=== PATIENT | male | born 1995 | race Caucasian/White ===

== ENCOUNTER 2020-05-18 21:09 | Emergency (ER) | payer OTHER ==
[~2020-05-18] VITALS: Ht 172.7 cm; Wt 113.4 kg
[2020-05-18 21:37] VITALS: BP 144/85
[2020-05-18] MEDS ORDERED: MOTRIN PO STA (21:39)
--- NOTE | 2020-05-18 21:46 | ER.PDOC ---
General Chief Complaint: Earache Stated Complaint: EARACHE,SORE THROAT Time seen by MD: 21:30 Source: patient Exam Limitations: no limitations History of Present Illness Timing/Duration: gradual (Earache for 1 week, sore throat for 1 day) Additional Context: Patient states he has had an earache for 1 week. Patient states he had a coworker that tested positive for strep earlier in the week. Patient states he began having a sore throat today. Patient does report nasal congestion and mild cough Severity: mild Associated Symptoms: earache, runny nose, sore throat, cough Worsen By: other (Throat hurts worse when swallowing) Allergies: Coded Allergies: Penicillins (Verified Allergy, Severe, SWELLING HIVES, 06/22/13) peanut (Verified Allergy, Severe, SWELLING OF THROAT, 06/22/13) Home Meds No Active Prescriptions or Reported Meds Constitutional: denies fever EENTM: ear pain, nose congestion, throat pain; denies throat swelling Respiratory: cough; denies shortness of breath Cardiovascular: denies chest pain Gastrointestinal: denies diarrhea, denies nausea, denies vomiting Skin: denies rash All Other Systems: Reviewed and Negative Past Medical History Medical History: cardiac problems (heart murmur), thyroid disease Surgical History: knee, other (adnoidectomy) Family History Significant Family History: heart disease, diabetes, hypertension Social History Smoking: other (Vaping) Alcohol Use: occassionally Drug Use: none Physical Exam General Appearance: alert, no distress, other (obese) Eye: eyes nml inspection, lids & conjunct. nml, PERRL Ear: ear nml Nose: nose nml Throat: pharynx nml, airway nml, pharyngeal erythema Neck: nml inspection, supple Respiratory: no resp.distress, breath sounds nml Abdomen: non-tender, no organomegaly CVS: reg rate & rhythm, heart sounds nml Skin: color nml, no rash, warm/dry Extremities: non-tender, nml ROM, no pedal edema NEURO/PSYCH: oriented x 3, CN's nml as tested, motor nml, sensation nml, mood/affect nml Results/Orders Results/Orders Orders - OBED CABRALES MD Strep Screen (05/18/20 21:39) Influenza A&B (05/18/20 21:39) Covid19 Antigen Majo Mitchell (05/18/20 21:39) Ibuprofen (Motrin) (05/18/20 21:39) Ibuprofen (Motrin) (05/18/20 22:07) Vital Signs Date Time Temp Pulse Resp B/P (MAP) Pulse Ox O2 Delivery O2 Flow Rate FiO2 05/18/20 21:54 98.2 87 16 144/85 (104) 97 Room Air 05/18/20 21:37 98.2 87 16 97 05/18/20 21:37 98.2 87 16 Administered Medications Medications (Trade) Dose Ordered Sig/Rosendo Route PRN Reason Start Time Stop Time Status Last Admin Dose Admin Ibuprofen (Motrin) 800 mg STAT STAT PO 05/18/20 21:39 05/18/20 21:41 DC 05/18/20 22:10 800 MG Laboratory Tests Test 05/18/20 22:02 Influenza Type A Antigen NEGATIVE (NEG) Influenza B Immunofluorescence NEGATIVE (NEG) SARS-CoV-2 Antigen (Rapid) NEGATIVE (NEGATIVE) Group A Streptococcus Screen NEGATIVE (NEGATIVE) Progress Progress Patient was given ibuprofen 800 mg by mouth for his sore throat. Patient strep, flu, Covid were all negative. Patient likely has viral upper respiratory infection. Patient does not appear to have peritonsillar abscess, retropharyngeal abscess, aspirated foreign body, tongue laceration, burn, angioedema, sepsis, or other serious etiology of symptoms. Patient will be discharged home. ER DEPART Departure Time of Disposition: 22:57 Disposition: 01 HOME, SELF-CARE Impression: Primary Impression: Acute upper respiratory infection Condition: Stable Referrals: ANA MARÍA FOY (PCP) PRIMARY CARE PROVIDER Additional Instructions: Thank you for your visit today and trusting us with your health care needs. Return immediately if difficulty breathing, difficulty swallowing, severe cough, persistent vomiting. Soft diet. Drink lots of fluid. Ibuprofen 800 mg by mouth every 8 hours as needed for pain or fever [id number]. Acetaminophen 1000 mg by mouth every 6 hours as needed for pain or fever [id number]. Follow-up with primary care physician in 1 week. Scripts No Active Prescriptions or Reported Meds Duration or Time Spent with Pa: 15 minutes Return to Work/School Can a patient return to work?: Yes OBED CABRALES MD May 18, 2020 21:46
[2020-05-18 21:54] VITALS: BP 144/85
[2020-05-18] MEDS ORDERED: MOTRIN ONE (22:07)
[2020-05-18 23:05] VITALS: BP 153/84
== END 2020-05-18 23:05 | disposition home or self-care (01) ==
LOC: ER 21:09
DX: J06.9 Acute upper respiratory infection, unspecified (principal); Z20.822 Contact with and (suspected) exposure to COVID-19; E07.9 Disorder of thyroid, unspecified; Z79.1 Long term (current) use of non-steroidal anti-inflammatories (NSAID); Z82.49 Family history of ischemic heart disease and other diseases of the circulatory system; Z83.3 Family history of diabetes mellitus; Z88.0 Allergy status to penicillin
CPT/HCPCS: 87070; 87426; 87804; 87880; 99283